=== PATIENT | female | born 1965 | race Caucasian/White ===

== ENCOUNTER 2018-10-06 10:07 | Outpatient (CLI) | payer BC ==
[~2018-10-06 10:07] MED LIST: BUPR300T55 PO; ESCI10TA PO; LORA-259 PO
[2018-10-06] MEDS ORDERED: DIATR MEGLU/DIATRIZ SOD 30 ML SOLUTION PO ONE (10:27)
== END 2018-10-06 19:23 | disposition home or self-care (01) ==
LOC: SCT 10:07
PROVIDERS: ATTEND Internal Medicine Gastroenterology
DX: K76.9 Liver disease, unspecified (principal)
CPT/HCPCS: 74176; Q9964